=== PATIENT | female | born 1970 | race Caucasian/White ===

== ENCOUNTER 2016-10-24 10:09 | Emergency (ER) | payer MEDICAID ==
[~2016-10-24] VITALS: Wt 65.0 kg
[~2016-10-24 10:09] MED LIST: ACET1TAB40 PO; ATEN-51 PO; CEPH-443 PO; FAMO-18 PO; HYDR-3671 PO; ONDA4TAB35 PO
[2016-10-24] MEDS ORDERED: ONDANSETRON 4 MG INJ IV STA (11:10)
[2016-10-24] MEDS ORDERED: SOD CHLORIDE 0.9% 1,000 ML IV STA (11:10)
[2016-10-24] MEDS ORDERED: IBUP-1542 PO (11:22)
[2016-10-24 11:36] LABS: ADD SCAN DIFF NO
[2016-10-24 11:45] LABS: BASOPHILS % 0.2 % (0.0-2.0); EOSINOPHILS # 0.1 10^3/ul (0.0-0.5); EOSINOPHILS % 0.9 % (0.0-7.0); HEMATOCRIT 38.4 % (37.0-47.0); HEMOGLOBIN 12.5 g/dl (12.0-16.0); LYMPHOCYTES # 0.9 10^3/ul (0.8-2.9); LYMPHOCYTES % 17.1 % (15.0-51.0); MEAN CORPUSCULAR HEMOGLOBIN 27.4 pg (29.0-33.0); MEAN CORPUSCULAR HGB CONC 32.6 g/dl (32.0-37.0); MEAN PLATELET VOLUME 9.9 fl (7.4-10.4); MONOCYTE # 0.3 10^3/ul (0.3-0.9); NEUTROPHIL # 4.2 10^3/ul (1.6-7.5); NEUTROPHILS % 76.6 % (39.0-77.0); PLATELET COUNT 254 10^3/UL (140-415); RED BLOOD COUNT 4.57 10^6/ul (4.20-5.40); RED CELL DISTRIBUTION WIDTH 15.9 % (11.5-14.5); WHITE BLOOD COUNT 5.4 10^3/ul (4.8-10.8)
[2016-10-24 11:54] LABS: ALBUMIN 4.1 g/dl (3.3-4.9); CHLORIDE 99 mmol/L (97-110); POTASSIUM 3.5 mmol/L (3.5-5.1); SODIUM 140 mmol/L (135-144)
[2016-10-24 11:56] LABS: CREATININE 0.57 mg/dl (0.44-1.00)
[2016-10-24 11:57] LABS: ALANINE AMINOTRANSFERASE 23 IU/L (13-69); ALBUMIN/GLOBULIN RATIO 1.17; ALKALINE PHOSPHATASE 98 IU/L (42-121); ANION GAP 18 (8-16); ASPARTATE AMINO TRANSFERASE 21 IU/L (15-46); BILIRUBIN,INDIRECT 0.5 mg/dl (0-1.1); BILIRUBIN,TOTAL 0.5 mg/dl (0.2-1.3); BLOOD UREA NITROGEN 10 mg/dl (7-20); CALCIUM 8.9 mg/dl (8.4-10.2); CARBON DIOXIDE 27 mmol/L (21-31); GLUCOSE 102 mg/dl (70-220); TOTAL PROTEIN 7.6 g/dl (6.1-8.1)
[2016-10-24 11:58] LABS: ADD UMIC YES; URINE BILIRUBIN (Dip) NEGATIVE (NEGATIVE); URINE BLOOD (Dip) 2+ (NEGATIVE); URINE COLOR LT. YELLOW (YELLOW); URINE GLUCOSE (Dip) NEGATIVE (NEGATIVE); URINE KETONES (Dip) NEGATIVE (NEGATIVE); URINE LEUKOCYTE ESTERASE (Dip) NEGATIVE (NEGATIVE); URINE NITRITE (Dip) NEGATIVE (NEGATIVE); URINE TOTAL PROTEIN (Dip) NEGATIVE (NEGATIVE); URINE UROBILINOGEN (Dip) 0.2 E.U./dL (0.1-1.0)
[2016-10-24 12:22] LABS: TROPONIN-I < 0.012 ng/ml (0.00-0.12)
--- NOTE | 2016-10-24 12:58 | ERD ---
ER Documentation Chief Complaint Date/Time DATE: 10/24/16 TIME: 12:50 Chief Complaint CHEST TIGHTNESS SINCE 3 DAYS AGO . HEADACHE BUT NO NEURO DEFICIT . HPI 46-year-old woman with multiple complaints including palpitations, chest pain, headache, paresthesias 3 days as well as elevated blood pressure despite using her antihypertensive medications as prescribed. She has had these symptoms in the past and over the last 3 days her symptoms have been episodic. She states the chest pain is nonexertional and nonradiating, she has had no shortness of breath, no calf or leg swelling, no blurry vision, no weakness in her arms or legs. ROS All systems reviewed and are negative except as per history of present illness. Medications Home Meds Active Scripts Ibuprofen* (Ibuprofen*) 600 Mg Tablet, 600 MG PO Q8 for PAIN AND/OR INFLAMMATION , #30 TAB Prov:MARINA LEVY MD 10/24/16 Atenolol* (Atenolol*) 25 Mg Tablet, 25 MG PO DAILY, #10 TAB Prov:ANCELMO MEJIA DO 03/30/16 Hydralazine Hcl* (Hydralazine Hcl*) 25 Mg Tab, 25 MG PO Q8, #30 TAB Prov:JUICE MCGEE 07/02/15 Discontinued Scripts Atenolol* (Atenolol*) 25 Mg Tablet, 25 MG PO DAILY, #10 TAB Prov:ANCELMO MEJIA DO 03/30/16 Cephalexin* (Keflex*) 500 Mg Capsule, 500 MG PO QID for 7 Days, CAP Prov:REDDY TREADWELL MD 10/26/15 Acetaminophen-Codeine* (Acetaminophen-Cod #3*) 300-30 Mg Tab, 1 TAB PO Q4H Y for PAIN, #14 TAB Prov:REDDY TREADWELL MD 10/26/15 Famotidine* (Pepcid*) 20 Mg Tablet, 20 MG PO BID for 10 Days, TAB Prov:REDDY TREADWELL MD 10/26/15 Ondansetron Hcl* (Zofran* ODT) 4 mg -ODT Tab.disper, 4 MG PO Q6 Y for NAUSEA AND /OR VOMITING, #10 TAB Prov:JUICE MCGEE 07/02/15 Allergies Allergies: Coded Allergies: No Known Allergy (Unverified , 3/14/16) PMhx/Soc Hypertension, gastritis History of Surgery: Yes () Anesthesia Reaction: No Hx Neurological Disorder: No Hx Respiratory Disorders: No Hx Cardiac Disorders: Yes ( HTN) Hx Psychiatric Problems: No Hx Miscellaneous Medical Probl: Yes ( HIGH CHOLESTEROL) Hx Alcohol Use: No Hx Substance Use: No Hx Tobacco Use: No Smoking Status: Never smoker FmHx Family History: No diabetes Physical Exam Vitals Vital Signs Date Time Temp Pulse Resp B/P Pulse Ox O2 Delivery O2 Flow Rate FiO2 10/24/16 11:15 63 17 146/90 97 Room Air 10/24/16 10:16 97.9 73 21 127/74 100 Physical Exam GENERAL: Well-developed, well-nourished, well-hydrated, in no apparent distress , looks nontoxic in appearance HEENT: Moist mucous membranes, pink conjunctiva, no cervical spine tenderness or step-off deformities, no goiter, no jaundice or icterus, extraocular movements intact without pain. No submandibular induration, and no pharyngeal erythema NEURO: Alert and oriented 3, cranial nerves II through XII intact bilaterally, pupils equal round reactive to light, no focal deficits or facial asymmetry, sensation intact distally Strength 5/5 in upper and lower extremities bilaterally CARDIAC: Regular rate and rhythm, no murmurs rubs or gallops LUNGS: Clear bilaterally no wheezing crackles or stridor ABDOMEN: Soft nontender, no guarding, no rigidity, no rebound, no psoas sign no obturator sign. Normoactive bowel sounds SKIN: Warm and dry to touch, no abrasions, contusions, or hematomas, no lacerations, no ecchymosis, no target lesions, and without ulcers EXTREMITIES: No clubbing cyanosis or edema, calves are bilaterally symmetrical, no Homans sign, no popliteal cord sign. Distal pulses equal and bilateral PSYCH: Normal affect without agitation or irritability Result Diagram: 10/24/16 1125 10/24/16 1125 Results 24 hrs Laboratory Tests Test 10/24/16 11:25 Alanine Aminotransferase (ALT/SGPT) 23IU/L Albumin 4.1g/dl Albumin/Globulin Ratio 1.17 Alkaline Phosphatase 98IU/L Anion Gap 18 Aspartate Amino Transf (AST/SGOT) 21IU/L Basophils # 0.010^3/ul Basophils % 0.2% Blood Urea Nitrogen 10mg/dl Calcium Level 8.9mg/dl Carbon Dioxide Level 27mmol/L Chloride Level 99mmol/L Creatinine 0.57mg/dl Direct Bilirubin 0.00mg/dl Eosinophils # 0.110^3/ul Eosinophils % 0.9% Globulin 3.50g/dl Glucose Level 102mg/dl Hematocrit 38.4% Hemoglobin 12.5g/dl Indirect Bilirubin 0.5mg/dl Lipase 106U/L Lymphocytes # 0.910^3/ul Lymphocytes % 17.1% Mean Corpuscular Hemoglobin 27.4pg Mean Corpuscular Hemoglobin Concent 32.6g/dl Mean Corpuscular Volume 84.0fl Mean Platelet Volume 9.9fl Monocytes # 0.310^3/ul Monocytes % 5.0% Neutrophils # 4.210^3/ul Neutrophils % 76.6% Nucleated Red Blood Cells # 0.010^3/ul Nucleated Red Blood Cells % 0.0/100WBC Platelet Count 37665^3/UL Potassium Level 3.5mmol/L Red Blood Count 4.5710^6/ul Red Cell Distribution Width 15.9% Sodium Level 140mmol/L Total Bilirubin 0.5mg/dl Total Protein 7.6g/dl Troponin I < 0.012ng/ml Urine Bilirubin NEGATIVE Urine Clarity CLEAR Urine Color LT. YELLOW Urine Glucose NEGATIVE% Urine Hemoglobin 2+ Urine Ketones NEGATIVE Urine Leukocyte Esterase NEGATIVE Urine Microscopic RBC 5-10/HPF Urine Microscopic WBC NONE SEEN/HPF Urine Nitrite NEGATIVE Urine Specific [place] 1.015 Urine Total Protein NEGATIVE Urine Urobilinogen 0.2 E.U./dL Urine pH 7.0 White Blood Count 5.410^3/ul Current Medications Medications (Trade) Dose Ordered Sig/Caroline Route PRN Reason Start Time Stop Time Status Last Admin Dose Admin Sodium Chloride (NS) 1,000 ml @ 1,000 mls/hr Q1H STAT IV 10/24/16 11:10 10/24/16 12:09 DC 10/24/16 11:20 Ondansetron HCl (Zofran Inj) 4 mg ONCE STAT IV 10/24/16 11:10 10/24/16 11:14 DC 10/24/16 11:20 Clonidine (Catapres) 0.1 mg ONCE ONCE PO 10/24/16 11:30 10/24/16 11:31 DC 10/24/16 11:28 Procedures/MDM IV line was established patient was placed on cardiac rehabilitation specialist rhythm strip revealed a sinus rhythm at about 60 bpm with upright P and T waves. Patient was afebrile. EKG performed, read by me: 62 bpm, normal sinus rhythm, normal axis, no acute ST segment changes, narrow QRS complex, with good R-wave progression in precordial leads. I administered 1 L normal saline intravenously and clonidine 0.1 mg p.o. with good effect. I also administered Zofran 4 mg IV 1 CBC and electrolytes were unremarkable, liver function tests were normal, troponin was negative. test was negative and urine analysis was negative for infection. Patient's blood pressure improved after above interventions. Differential diagnoses considered, included but not limited to acute coronary syndrome, pulmonary embolism, aortic dissection, abdominal aortic aneurysm, sepsis, stroke, meningitis, encephalitis, pneumonia, appendicitis, cholecystitis , bowel obstruction, pyelonephritis, nephrolithiasis, cystitis, as well as metabolic, hematologic, and electrolyte abnormalities. As well as abscess, cellulitis, fractures, and dislocations. Patient feels much better at this time, and vital signs are normal, symptoms have improved. I did give strict instructions to return to the ED if symptoms continue or worsen, patient will otherwise follow-up with primary care physician. Patient understood instructions and agreed to plan. Departure Diagnosis: Primary Impression: Hypertension Hypertension type: essential hypertension Qualified Code: I10 - Essential hypertension Condition: Good Patient Instructions: High Blood Pressure (Hypertension) MARINA LEVY MD Oct 24, 2016 12:58
[2016-10-24 13:33] VITALS: BP 134/94; PULSE 57; RESP 16
== END 2016-10-24 13:34 | disposition home or self-care (01) ==
LOC: E/R 10:09
DX: I10 Essential (primary) hypertension (principal)
CPT/HCPCS: 36415; 80053; 81001; 83690; 84484; 85025; 96361; 96374; J2405; J7030; Z7502; Z7610; 81003; 93005

== ENCOUNTER 2017-03-26 17:31 | Emergency (ER) | END 2017-03-26 18:27 | disposition home or self-care (01) | DX: I10 Essential (primary) hypertension (principal); J06.9 Acute upper respiratory infection, unspecified; R11.10 Vomiting, unspecified; R10.9 Unspecified abdominal pain | CPT/HCPCS: Z7502; Z7610 ==

== ENCOUNTER 2017-07-16 15:04 | Emergency (ER) | payer MEDICAID ==
[~2017-07-16] VITALS: Ht 149.9 cm; Wt 65.0 kg
[~2017-07-16 15:04] MED LIST changes: -ACET1TAB40 PO; +AZIT250T94 PO; -CEPH-443 PO; -FAMO-18 PO; +HYDR25TA6 PO; +IBUP-1542 PO; -ONDA4TAB35 PO
[2017-07-16 15:12] VITALS: Ht 149.9 cm; Wt 65.0 kg
[2017-07-16] MEDS ORDERED: KETOROLAC 30 MG INJ IV STA (15:29)
[2017-07-16] MEDS ORDERED: ONDANSETRON 4 MG INJ IV STA (15:29)
[2017-07-16 15:59] LABS: BASOPHILS % 0.2 % (0.0-2.0); EOSINOPHILS # 0.1 10^3/ul (0.0-0.5); EOSINOPHILS % 2.2 % (0.0-7.0); HEMOGLOBIN 13.9 g/dl (12.0-16.0); LYMPHOCYTES # 1.3 10^3/ul (0.8-2.9); LYMPHOCYTES % 22.7 % (15.0-51.0); MEAN CORPUSCULAR HEMOGLOBIN 28.5 pg (29.0-33.0); MEAN CORPUSCULAR HGB CONC 33.1 g/dl (32.0-37.0); MEAN CORPUSCULAR VOLUME 86.1 fl (82.0-101.0); MONOCYTE # 0.3 10^3/ul (0.3-0.9); MONOCYTES % 4.7 % (0.0-11.0); NEUTROPHIL # 4.1 10^3/ul (1.6-7.5); NEUTROPHILS % 69.7 % (39.0-77.0); PLATELET COUNT 245 10^3/UL (140-415); RED BLOOD COUNT 4.88 10^6/ul (4.20-5.40); RED CELL DISTRIBUTION WIDTH 14.6 % (11.5-14.5); WHITE BLOOD COUNT 5.9 10^3/ul (4.8-10.8)
[2017-07-16 16:19] LABS: ALBUMIN 4.7 g/dl (3.3-4.9); ALBUMIN/GLOBULIN RATIO 1.34; BILIRUBIN,INDIRECT 0.4 mg/dl (0-1.1); BILIRUBIN,TOTAL 0.4 mg/dl (0.2-1.3); CALCIUM 9.2 mg/dl (8.4-10.2); CREATININE 0.77 mg/dl (0.44-1.00); POTASSIUM 3.5 mmol/L (3.5-5.1); TOTAL PROTEIN 8.2 g/dl (6.1-8.1)
[2017-07-16 16:20] LABS: ADD UMIC YES; UR ASCORBIC ACID NEGATIVE (NEGATIVE); UR BILIRUBIN (Dip) NEGATIVE (NEGATIVE); UR BLOOD (Dip) 2+ mg/dL (NEGATIVE); UR CLARITY CLEAR (CLEAR); UR COLOR YELLOW (YELLOW); UR GLUCOSE (Dip) NEGATIVE (NEGATIVE); UR KETONES (Dip) NEGATIVE (NEGATIVE); UR LEUKOCYTE ESTERASE (Dip) NEGATIVE Leu/ul (NEGATIVE); UR NITRITE (Dip) NEGATIVE (NEGATIVE); UR RBC 6 /HPF (0-5); UR SPECIFIC GRAVITY (Dip) 1.015 (1.003-1.030); UR TOTAL PROTEIN (Dip) NEGATIVE (NEGATIVE); UR UROBILINOGEN (Dip) NEGATIVE (NEGATIVE)
--- NOTE | 2017-07-16 16:47 | RADRPT ---
PROCEDURE: US Abdomen Right Upper Quadrant. CLINICAL INDICATION: Abdominal pain TECHNIQUE: Multiple real-time longitudinal and transverse images were acquired of the [facility] abdomen utilizing a curved array transducer. COMPARISON: 10/26/2015 FINDINGS: Liver: normal in size and echotexture. There is no focal lesion. The hepatic and portal veins appea r patent and there is normal directional flow in the main portal vein Gallbladder: A 1.7 cm in diameter gallstone is seen within the gallbladder. The gallbladder wall is mildly thickened at 3.1 mm Bile ducts: There is no significant intra or extrahepatic bile duct dilatation. No choledocholiths a re seen within the visualized portions. The common bile duct measures 3.1 mm in cross diameter. Pancreas: Appears unremarkable with no mass or inflammation evident. Right adrenal : no mass is identified Right kidney: The right kidney measures 10.5 cm in length. No mass, pathological calcification, or hydronephrosis is evident. Peritoneum: There is no free intraperitoneal fluid IMPRESSION: 1. A 1.7 cm gallstone is evident, slightly larger than on the previous scan, and the gallbladder wa ll is now minimally thickened at 3.1 mm. Clinical correlation is indicated to exclude cholecystitis. 2. No bile duct dilatation is evident and the pancreas appears normal. 3. Otherwise, stable and unremarkable right upper quadrant abdominal sonogram. Physician Ruth Date Time Electronically viewed and signed by Physician Ruth on 07/16/2017 16:47 /
[2017-07-16] MEDS ORDERED: TRAM50TA2 PO (17:46)
[2017-07-16] MEDS ORDERED: ONDA8TAB14 PO (17:46)
--- NOTE | 2017-07-16 17:52 | ERD ---
ER Documentation Chief Complaint Chief Complaint back pain radiates to the front, nausea since yesterday HPI This 47-year-old female presents with nausea and right upper quadrant abdominal pain radiating to the back since yesterday. She denies any vomiting. She denies any fevers or lower abdominal pain. She has a history of gallstones that have not been treated. ROS All systems reviewed and are negative except as per history of present illness. Medications Home Meds Active Scripts Ondansetron (Ondansetron Odt) 8 Mg Tab.rapdis, 8 MG PO Q6H Y for NAUSEA AND/OR VOMITING, #8 TAB Prov:REDDY TREADWELL MD 07/16/17 Tramadol HCl (Tramadol HCl) 50 Mg Tablet, 50 MG PO Q4 Y for PAIN, #20 TAB Prov:REDDY TREADWELL MD 07/16/17 Azithromycin* (Zithromax*) 250 Mg Tablet, 250 MG PO .ZPACK DIRECTED, #6 TAB TAKE 500 MG (2 TABS) THE FIRST DAY THEN 250 MG (1 TAB) DAYS 2-5 Prov:REDDY TREADWELL MD 03/26/17 Ibuprofen* (Motrin*) 600 Mg Tab, 600 MG PO Q6, #20 TAB Prov:REDDY TREADWELL MD 03/26/17 Hydrochlorothiazide* (Hydrochlorothiazide*) 25 Mg Tab, 25 MG PO DAILY, #30 TAB Prov:REDDY TREADWELL MD 03/26/17 Ibuprofen* (Ibuprofen*) 600 Mg Tablet, 600 MG PO Q8 for PAIN AND/OR INFLAMMATION , #30 TAB Prov:MARINA LEVY MD 10/24/16 Atenolol* (Atenolol*) 25 Mg Tablet, 25 MG PO DAILY, #10 TAB Prov:ANCELMO MEJIA DO 03/30/16 Hydralazine Hcl* (Hydralazine Hcl*) 25 Mg Tab, 25 MG PO Q8, #30 TAB Prov:JUICE MCGEE 07/02/15 Allergies Allergies: Coded Allergies: No Known Allergy (Unverified , 10/26/15) PMhx/Soc History of Surgery: Yes () Anesthesia Reaction: No Hx Neurological Disorder: No Hx Respiratory Disorders: No Hx Cardiac Disorders: Yes ( HTN) Hx Psychiatric Problems: No Hx Miscellaneous Medical Probl: Yes ( HIGH CHOLESTEROL) Hx Alcohol Use: No Hx Substance Use: No Hx Tobacco Use: No Smoking Status: Never smoker Physical Exam Vitals Vital Signs Date Time Temp Pulse Resp B/P Pulse Ox O2 Delivery O2 Flow Rate FiO2 07/16/17 15:12 98.2 70 19 154/79 98 Physical Exam Const: [] Alert, [id number]. Head: Atraumatic Eyes: Normal Conjunctiva ENT: Normal External Ears, Nose and Mouth. Neck: Full range of motion..~ No meningismus. Resp: Clear to auscultation bilaterally Cardio: Regular rate and rhythm, no murmurs Abd: Soft, mild right upper quadrant tenderness. Mild right upper back tenderness. No tenderness at McBurney's point. No rebound. non distended. Normal bowel sounds Skin: No petechiae or rashes Back: No midline or flank tenderness Ext: No cyanosis, or edema Neur: Awake and alert Psych: Normal Mood and Affect Result Diagram: 07/16/17 1550 07/16/17 1550 Results 24 hrs Laboratory Tests Test 07/16/17 15:34 07/16/17 15:50 Urine Color YELLOW Urine Clarity CLEAR Urine pH 6.0 Urine Specific [place] 1.015 Urine Ketones NEGATIVEmg/dL Urine Nitrite NEGATIVEmg/dL Urine Bilirubin NEGATIVEmg/dL Urine Urobilinogen NEGATIVEmg/dL Urine Leukocyte Esterase NEGATIVELeu/ul Urine Microscopic RBC 6/HPF Urine Microscopic WBC 1/HPF Urine Hemoglobin 2+mg/dL Urine Glucose NEGATIVEmg/dL Urine Total Protein NEGATIVEmg/dl White Blood Count 5.910^3/ul Red Blood Count 4.8810^6/ul Hemoglobin 13.9g/dl Hematocrit 42.0% Mean Corpuscular Volume 86.1fl Mean Corpuscular Hemoglobin 28.5pg Mean Corpuscular Hemoglobin Concent 33.1g/dl Red Cell Distribution Width 14.6% Platelet Count 74873^3/UL Mean Platelet Volume 10.0fl Neutrophils % 69.7% Lymphocytes % 22.7% Monocytes % 4.7% Eosinophils % 2.2% Basophils % 0.2% Nucleated Red Blood Cells % 0.0/100WBC Neutrophils # 4.110^3/ul Lymphocytes # 1.310^3/ul Monocytes # 0.310^3/ul Eosinophils # 0.110^3/ul Basophils # 0.010^3/ul Nucleated Red Blood Cells # 0.010^3/ul Sodium Level 145mmol/L Potassium Level 3.5mmol/L Chloride Level 105mmol/L Carbon Dioxide Level 29mmol/L Anion Gap 15 Blood Urea Nitrogen 15mg/dl Creatinine 0.77mg/dl Glucose Level 131mg/dl Calcium Level 9.2mg/dl Total Bilirubin 0.4mg/dl Direct Bilirubin 0.00mg/dl Indirect Bilirubin 0.4mg/dl Aspartate Amino Transf (AST/SGOT) 24IU/L Alanine Aminotransferase (ALT/SGPT) 35IU/L Alkaline Phosphatase 112IU/L Total Protein 8.2g/dl Albumin 4.7g/dl Globulin 3.50g/dl Albumin/Globulin Ratio 1.34 Lipase 137U/L Current Medications Medications (Trade) Dose Ordered Sig/Caroline Route PRN Reason Start Time Stop Time Status Last Admin Dose Admin Ondansetron HCl (Zofran Inj) 4 mg ONCE STAT IV 07/16/17 15:29 07/16/17 15:30 DC 07/16/17 15:54 Ketorolac Tromethamine (Toradol) 30 mg ONCE STAT IV 07/16/17 15:29 07/16/17 15:30 DC 07/16/17 15:56 Procedures/MDM CBC and CMP and lipase showed no acute abnormalities. Urine shows no leukocytes , nitrites or glucose. There is some hemoglobin. Right upper quadrant ultrasound shows a solitary gallstone with borderline gallbladder wall thickening without evidence of obstruction. No pericholecystic fluid. She was given Toradol 30 g IV and Zofran 4 mg IV. Patient has had quadrant abdominal pain with a gallstone suggestive of biliary colic without evidence of cholecystitis, choledocholithiasis, appendicitis, signs or symptoms suggest UTI or pneumonia. Patient was treated with tramadol and Zofran and primary care follow-up and recommendations for general surgery for further evaluation and treatment of her gallstones. She is advised to return for fevers, vomiting, new worsening symptoms with primary doctor this week. Departure Diagnosis: Primary Impression: Abdominal pain Abdominal location: right upper quadrant Qualified Code: R10.11 - Right upper quadrant abdominal pain Condition: Stable Patient Instructions: Biliary Colic With Gallstone (Confirmed) Additional Instructions: See primary doctor and general surgeon for evaluation for further treatment or surgery. Recheck for fevers, vomiting, new worsening symptoms. Cheque otro vez con [place] doctor primario en el proximo ruano or regresa para mas o nueva simptomas- fienre, mas dolor, nueva simptomas. REDDY TREADWELL MD Jul 16, 2017 17:52
== END 2017-07-16 17:58 | disposition home or self-care (01) ==
LOC: FTE 15:04
DX: R10.11 Right upper quadrant pain (principal); I10 Essential (primary) hypertension
CPT/HCPCS: 36415; 76705; 80053; 81001; 83690; 85025; 96374; 96375; J1885; J2405; Z7502

== ENCOUNTER 2018-02-12 17:31 | Emergency (ER) | END 2018-02-12 22:28 | disposition home or self-care (01) ==